=== PATIENT | female | born 1990 ===

== ENCOUNTER 2019-05-13 16:04 | Emergency (ER) | payer MEDICAID ==
--- NOTE | 2019-05-13 16:37 | Emergency Department Record ---
History of Present Illness - General Chief complaint: Toothache Stated complaint: DRY SOCKET/DENTAL EXTRACTION ON . Time Seen by Provider: 05/13/19 16:29 Source: Patient Mode of Arrival: Ambulatory - History of Present Illness Initial comments: dental extractions 4 days ago and having pain in the lower molar pain and she went back in the next day and she got more pain meds norco and motrin and they numbed her jaw and she was told to go to the ED if it gets worse. Family Nick hernandez is Gilles Kent. Patient had four teeth removed and the left side is good. Onset/Timin -: Days(s) Location: Tooth # Severity: Moderate Severity scale (1-10): 8 Quality: Aching, Sharp Consistency: Constant Improves with: None Worsens with: None Context-Epistaxis: Recent surgery/procedure Context- Ear: Other - Related Data Home Medications Medication Instructions Recorded Confirmed Last Taken Hydrocodone/APAP 5/325Mg [[place] 1 each PO Q6H 05/13/19 05/13/19 05/13/19 12:00 5Mg/325Mg] Ibuprofen [Motrin 600Mg] 600 mg PO Q6H 05/13/19 05/13/19 05/13/19 11:00 Previous Rx's Medication Instructions Recorded Hydrocodone/Acetaminophen [[place] 1 each PO Q6HR #12 tablet 05/13/19 5-325 Tablet] Penicillin V Potassium 500 mg PO QID #40 tablet 05/13/19 Allergies Allergy/AdvReac Type Severity Reaction Status Date / Time anti nausea medications Allergy Intermediate high Uncoded 04/04/19 16:53 fevers, body shakes, vomiting Travel Screening - Travel/Exposure Within Last 30 Days Have you traveled within the last 30 days?: No Review of Systems Reviewed: No additional complaints except as noted below Constitutional: Reports: As per HPI. Denies: Chills, Fever, Malaise, Night sweats, Weakness, Weight change Eyes: Reports: As per HPI. Denies: Eye discharge, Eye pain, Photophobia, Vision change ENT: Reports: As per HPI, Dental pain. Denies: Congestion, Ear pain, Epistaxis, Hearing loss, Throat pain Respiratory: Reports: As per HPI. Denies: Cough, Dyspnea, Hemoptysis, Stridor, Wheezes Cardiovascular: Reports: As per HPI. Denies: Arrhythmia, Chest pain, Dyspnea on exertion, Edema, Murmurs, Orthopnea, Palpitations, Paroxysmal nocturnal dyspnea, Rheumatic Fever, Syncope Endocrine: Reports: As per HPI. Denies: Fatigue, Heat or cold intolerance, Polydipsia, Polyuria Gastrointestinal: Reports: As per HPI. Denies: Abdominal pain, Constipation, Diarrhea, Hematemesis, Hematochezia, Melena, Nausea, Vomiting Genitourinary: Reports: As per HPI. Denies: Abnormal menses, Discharge, Dyspareunia, Dysuria, Frequency, Hematuria, Incontinence, Retention, Urgency Musculoskeletal: Reports: As per HPI. Denies: Arthralgia, Back pain, Gout, Joint swelling, Myalgia, Neck pain Skin: Reports: As per HPI. Denies: Bruising, Change in color, Change in hair/nails, Lesions, Pruritus, Rash Neurological: Reports: As per HPI. Denies: Abnormal gait, Confusion, Headache, Numbness, Paresthesias, Seizure, Tingling, Tremors, Vertigo, Weakness Psychiatric: Reports: As per HPI. Denies: Anxiety, Auditory hallucinations, Depression, Homicidal thoughts, Suicidal thoughts, Visual hallucinations Hematological/Lymphatic: Reports: As per HPI. Denies: Anemia, Blood Clots, Easy bleeding, Easy bruising, Swollen glands Past Medical History - SOCIAL HISTORY Smoking Status: Current every day smoker Alcohol Use: None Drug Use: None - RESPIRATORY Hx Respiratory Disorders: No - CARDIOVASCULAR Hx Cardio Disorders: No - NEURO Hx Neuro Disorders: No - GI Hx GI Disorders: No - Hx Genitourinary Disorders: No - ENDOCRINE Hx Endocrine Disorders: No - MUSCULOSKELETAL Hx Musculoskeletal Disorders: No - PSYCH Hx Psych Problems: No - HEMATOLOGY/ONCOLOGY Hx Hematology/Oncology Disorders: No Family Medical History Any Significant Family History?: No Physical Exam - General General Appearance: Alert, Oriented x3, Cooperative, No acute distress - Head Head exam: Normal inspection - Eye Eye exam: Normal appearance, PERRL Pupils: Normal accommodation - ENT ENT exam: Normal exam, Mucous membranes moist, Normal external ear exam, Normal orophraynx, TM's normal bilaterally Ear exam: Normal external inspection. negative: External canal tenderness Nasal Exam: Normal inspection. negative: Discharge, Sinus tenderness Mouth exam: Normal external inspection, Tongue normal Teeth exam: Other (lower right molar pain and no signs of infection and she refused a shot in her gum). negative: Dental caries Throat exam: Normal inspection. negative: Tonsillar erythema, Tonsillar exudate - Neck Neck exam: Normal inspection, Full ROM. negative: Tenderness - Respiratory Respiratory exam: Normal lung sounds bilaterally. negative: Respiratory distress - Cardiovascular Cardiovascular Exam: Regular rate, Normal rhythm, Normal heart sounds - GI/Abdominal GI/Abdominal exam: Soft, Normal bowel sounds. negative: Tenderness - Rectal Rectal exam: Deferred - exam: Deferred - Extremities Extremities exam: Normal inspection, Full ROM, Normal capillary refill. negative: Tenderness - Back Back exam: Reports: Normal inspection, Full ROM. Denies: Muscle spasm, Rash noted, Tenderness - Neurological Neurological exam: Alert, Normal gait, Oriented X3, Reflexes normal - Psychiatric Psychiatric exam: Normal affect, Normal mood - Skin Skin exam: Dry, Intact, Normal color, Warm Course Vital Signs 05/13/19 16:16 Temperature 98.3 F Pulse Rate 73 Respiratory 20 Rate Blood Pressure 108/67 Pulse Ox 99 Medical Decision Making - Data Complexity MDM Data: Labs Ordered and/or Reviewed - Lab Data Result diagrams: 05/13/19 17:05 Disposition Clinical Impression: Pain, dental, Status post tooth extraction Disposition: Home, Self-Care Condition: (2) Stable Instructions: Toothache (ED) Additional Instructions: follow up with dentist on wednesday Prescriptions: Hydrocodone/Acetaminophen [[place] 5-325 Tablet] 1 each PO Q6HR #12 tablet Penicillin V Potassium 500 mg PO QID #40 tablet Forms: Patient Portal Access Time of Disposition: 16:47 Quality - Quality Measures Quality Measures: N/A - Blood Pressure Screening Does Patient Have Any of the Following: No Blood Pressure Classification: Normal BP Reading Systolic Measurement: 108 Diastolic Measurement: 67 Screening for High Blood Pressure: < Normal BP, F/U Not Required > [[id number]]
[2019-05-13] MEDS ORDERED: KETOROLAC 60 MG/2 ML VIAL IM STA (16:39)
[2019-05-13] MEDS ORDERED: LORAZEPAM 2 MG/ML VIAL IM ONE (16:39)
[2019-05-13 17:10] LABS: BASO % 0.2 % (0-6); EOS % 1.5 % (0-6); HEMATOCRIT 37.9 % (35.0-47.0); HEMOGLOBIN 12.5 gm/dl (11.6-16.0); LYMPH % 36.7 % (16-45); MEAN CELL VOLUME 96.7 fl (81-97); MEAN CORPUSCULAR HEMOGLOBIN 31.9 pg (27-33); MEAN PLATELET VOLUME 10.2 fl (7.4-10.4); MONO % 9.6 % (0-9); PLATELET COUNT 160 K/uL (130-400); RED BLOOD COUNT 3.92 M/uL (3.80-5.40); RED CELL DISTRIBUTION WIDTH 11.8 % (11.5-14.5); WHITE BLOOD COUNT W/O DIFF 5.4 K/uL (4.2-12.2)
[2019-05-13] MEDS ORDERED: PENICILLIN V POTASSIUM 250 MG TAB PO ONE (18:31)
== END 2019-05-13 18:51 | disposition home or self-care (01) ==
LOC: ER 16:04
DX: K08.409 Partial loss of teeth, unspecified cause, unspecified class (principal); K08.89 Other specified disorders of teeth and supporting structures
CPT/HCPCS: 85025; 96372; 99284; J1885